=== PATIENT | male | born 1955 | race Caucasian/White ===

== ENCOUNTER 2021-01-11 16:13 | Observation (INO) | payer OTHER ==
[~2021-01-11] VITALS: Ht 177.8 cm; Wt 122.0 kg
[2021-01-11 17:49] LABS: RED BLOOD COUNT 5.3 M/UL (4.20-5.50); WHITE BLOOD COUNT 17.3 K/UL (4.5-11.0)
[2021-01-11 18:10] LABS: BUN/CREATININE RATIO 14 (0-10)
[2021-01-11] MEDS ORDERED: AMLODIPINE BESY10 MG PO (23:02)
[2021-01-11] MEDS ORDERED: FUROSEMIDE20 MG PO (23:02)
[2021-01-11] MEDS ORDERED: FAMOTIDINE40 MG PO (23:02)
[2021-01-11] MEDS ORDERED: LEVOTHYROXINE25 MCG PO (23:02)
[2021-01-11] MEDS ORDERED: POTASSIUM CHLO10 ME2 PO (23:03)
[2021-01-11] MEDS ORDERED: METOPROLOL TAR100 MG PO (23:03)
[2021-01-11] MEDS ORDERED: LISINOPRIL20 MG PO (23:03)
[2021-01-11] MEDS ORDERED: CATAPRES 0.1MG0.1 MG PO (23:03)
[2021-01-11] MEDS ORDERED: METFORMIN HCL1000 MG PO (23:04)
[2021-01-11] MEDS ORDERED: FENOFIBRATE160 MG PO (23:04)
[2021-01-11] MEDS ORDERED: ASPIRIN81 MG PO (23:04)
[2021-01-11] MEDS ORDERED: SIMVASTATIN80 MG PO (23:05)
[2021-01-11] MEDS ORDERED: B12 ACTIVE1000 MCG PO (23:06)
[2021-01-11] MEDS ORDERED: VITAMIN D375 MCG PO (23:07)
[2021-01-11] MEDS ORDERED: JANUVIA100 MG PO (23:09)
[2021-01-11] MEDS ORDERED: IMODIUM CAP 2 MG2 MG PO (23:09)
[2021-01-11] MEDS ORDERED: GLIPIZIDE ER5 MG PO (23:10)
[2021-01-12] MEDS ORDERED: PROTONIX 40 MG40 M1 PO (17:14)
== END 2021-01-12 18:45 | disposition home or self-care (01) ==
LOC: ER1 16:13 → MED SURG 4 20:25 → CDU 20:25 → MED SURG 4 22:22
PROVIDERS: Emergency Medicine; ADMIT Internal Medicine
DX: K21.00 Gastro-esophageal reflux disease with esophagitis, without bleeding (principal); I11.9 Hypertensive heart disease without heart failure; E11.9 Type 2 diabetes mellitus without complications; E78.5 Hyperlipidemia, unspecified; E66.9 Obesity, unspecified; Z88.8 Allergy status to other drugs, medicaments and biological substances; Z79.82 Long term (current) use of aspirin; Z79.84 Long term (current) use of oral hypoglycemic drugs; Z79.899 Other long term (current) drug therapy; Z20.822 Contact with and (suspected) exposure to COVID-19
CPT/HCPCS: 70491; 80053; 82962; 83036; 85025; 96372; 96374; 96375; 99284; C9113; G0378; J1200; J1650; Q9967; U0002